=== PATIENT | female | born 1975 | race Caucasian/White ===

== ENCOUNTER 2018-01-31 13:25 | Emergency (ER) | payer MEDICAID ==
[~2018-01-31] VITALS: Ht 157.5 cm; Wt 58.5 kg
[2018-01-31 13:34] VITALS: Ht 157.5 cm; Wt 58.5 kg
[2018-01-31 15:36] VITALS: BP 117/74
== END 2018-01-31 15:36 | disposition home or self-care (01) ==
LOC: ED 13:25
DX: S82.851A Displaced trimalleolar fracture of right lower leg, initial encounter for closed fracture (principal); S93.01XA Subluxation of right ankle joint, initial encounter; W22.8XXA Striking against or struck by other objects, initial encounter; Y93.02 Activity, running; Y92.89 Other specified places as the place of occurrence of the external cause; Y99.8 Other external cause status
CPT/HCPCS: J3010; J3490; Q0092; Q0162